=== PATIENT | female | born 1955 | race Caucasian/White ===

== ENCOUNTER 2021-09-19 08:00 | Outpatient (CLI) | payer BC, MEDICARE ==
[2021-09-19 18:19] LABS: BASOPHILS % (AUTO) 0.6 %; EOSINOPHILS # (AUTO) 0.1 10^3/uL (0.0-0.7); EOSINOPHILS % (AUTO) 2.5 %; HCT - HEMATOCRIT 44.8 % (37.0-47.0); HGB - HEMOGLOBIN 15.3 g/dL (12.0-16.0); LYMPHOCYTES # (AUTO) 0.9 10^3/uL (1.5-3.5); LYMPHOCYTES % (AUTO) 16.2 %; MEAN CORPUSCULAR HEMOGLOBIN 31.2 pg (27.0-31.0); MEAN CORPUSCULAR HGB CONC 34.2 g/dL (32.0-36.0); MEAN CORPUSCULAR VOLUME 91.2 fL (81.0-99.0); MEAN PLATELET VOLUME 10.8 fL (7.9-10.8); MONOCYTES # (AUTO) 0.4 10^3/uL (0.0-1.0); MONOCYTES % (AUTO) 6.8 %; NEUTROPHILS # (AUTO) 3.9 10^3/uL (1.5-6.6); NEUTROPHILS % (AUTO) 73.7 %; PLT - PLATELET COUNT 205 10^3/uL (130-450); RED BLOOD COUNT 4.91 10^6/uL (4.20-5.40); RED CELL DISTRIBUTION WIDTH 12.7 % (12.0-15.0); WHITE BLOOD COUNT 5.3 x10^3/uL (4.8-10.8)
[2021-09-19 18:43] LABS: ALBUMIN 4.3 g/dL (3.2-5.5); ALBUMIN/GLOBULIN RATIO 1.4 (1.0-2.2); ALKALINE PHOSPHATASE 51 IU/L (42-121); ALT ALANINE AMINOTRANSFERASE 21 IU/L (10-60); AST ASPARTATE AMINOTRANSFERASE 25 IU/L (10-42); BILIRUBIN,TOTAL 0.9 mg/dL (0.2-1.0); BUN - BLOOD UREA NITROGEN 18 mg/dL (6-20); CALCIUM 9.3 mg/dL (8.5-10.3); CARBON DIOXIDE - CO2 26 mmol/L (21-32); CHLORIDE 99 mmol/L (101-111); CHOL/HDL RATIO 5.5 (<4.4); CHOLESTEROL 251 mg/dL; CREATININE 0.7 mg/dL (0.4-1.0); GFR - MDRD 84 (>89); GLUCOSE 108 mg/dL (70-100); HDL CHOLESTEROL 46 mg/dL; LDL CHOLESTEROL,CALCULATED 181 mg/dL; LDL/HDL RATIO 3.9 (<4.4); POTASSIUM 3.8 mmol/L (3.5-5.0); SODIUM 136 mmol/L (135-145); TOTAL PROTEIN 7.4 g/dL (6.7-8.2); TRIGLYCERIDES 120 mg/dL; VLDL CHOLESTEROL 24 mg/dL
[2021-09-19 20:20] LABS: ESTIMATED AVERAGE GLUCOSE 97 mg/dL (70-100)
== END 2021-09-19 23:59 ==
LOC: LAB.WCP 08:00
PROVIDERS: ATTEND Family Medicine
DX: E88.81 Metabolic syndrome and other insulin resistance (principal); E78.2 Mixed hyperlipidemia; I10 Essential (primary) hypertension
CPT/HCPCS: 36415; 80053; 80061; 83036; 83721; 85025

== ENCOUNTER 2022-10-24 12:46 | Outpatient (CLI) | payer MEDICARE, OTHER ==
--- NOTE | 2022-10-24 18:03 | DEXA Report ---
PROCEDURE: Dexa Spine and/or Hip INDICATIONS: POST MENOPAUSAL TECHNIQUE: Dual energy x-ray absorptiometry (DXA) was performed on a [employer]. Regions measur ed are the AP Spine, femoral neck, and if needed forearm. COMPARISON: None. FINDINGS: Lumbar Spine: Bone Mineral Density 1.516 g/cm/cm,T score 2.8, normal bone density Left Hip: Bone Mineral Density 1.215 g/cm/cm, T score 1.6, normal bone density Left Femoral Neck: Bone Mineral Density 1.188 g/cm/cm,T score 1.1, normal bone density (T score greater or equal to -1.0: NORMAL) (T score from -1.1 to -2.4: OSTEOPENIA) (T score less than or equal to -2.5 to: OSTEOPOROSIS) Impression: Normal bone mineral density. Patients with diagnosis of osteoporosis or osteopenia should have regular bone mineral density assess ment. For those eligible for Medicare, routine testing is allowed once every 2 years. Testing frequ ency can be increased for patients who have rapidly progressing disease or for those who are receivin g medical therapy to restore bone mass. Reviewed by: Oumar Stone MD on 10/24/2022 6:01 PM PST Approved by: Oumar Stone MD on 10/24/2022 6:01 PM PST Station ID: [id number]
== END 2022-10-24 12:47 | disposition home or self-care (01) ==
LOC: DI 12:46
PROVIDERS: ATTEND Physician Assistant
DX: Z78.0 Asymptomatic menopausal state (principal)

== ENCOUNTER 2023-11-24 13:58 | Outpatient (CLI) | payer MEDICARE, OTHER ==
--- NOTE | 2023-11-24 18:06 | XRAY Report ---
PROCEDURE: Ankle 3+V RT INDICATIONS: RT FOOT AND ANKLE JOINT PAIN TECHNIQUE: 3 views of the ankle were acquired. COMPARISON: None. FINDINGS: Bones: No fractures or dislocations. Ankle mortise is normally aligned. Dorsal and plantar calcanea l spurs. Suggestion of pes planus. Soft tissues: Soft tissue swelling of the dorsum of the foot suggested. IMPRESSION: Pes planus and dorsal and plantar calcaneal spurs Soft tissue swelling dorsum of the foot Reviewed by: Daniel Diaz MD on 11/24/2023 6:05 PM PST Approved by: Daniel Diaz MD on 11/24/2023 6:05 PM PST Station ID: [id number]
--- NOTE | 2023-11-24 18:10 | XRAY Report ---
PROCEDURE: Foot 3+V RT (Weight Bearing) INDICATIONS: RT FOOT AND ANKLE JOINT PAIN TECHNIQUE: 3 views of the right foot are provided COMPARISON: None. FINDINGS: Questionable DJD of the distal No acute fracture or subluxation is seen. No significant soft tissue swelling is seen. Soft tissue sw elling noted on the dorsum of the foot. Note is again made of pes planus and dorsal and plantar calca jordan spurs. DJD of the first interphalangeal joint, the first metacarpophalangeal joint. Osteophytes seen adjacen t to the head of the first metatarsal on the oblique view. IMPRESSION: 1. DJD of the first metatarsophalangeal joint, first interphalangeal joint 2. Pes planus, dorsal and plantar calcaneal spurs, soft tissue swelling dorsum of the foot. Reviewed by: Daniel Diaz MD on 11/24/2023 6:09 PM PST Approved by: Daniel Diaz MD on 11/24/2023 6:09 PM PST Station ID: [id number]
== END 2023-11-24 13:59 | disposition home or self-care (01) ==
LOC: DI.N 13:58
PROVIDERS: ATTEND Nurse Practitioner
DX: M19.071 Primary osteoarthritis, right ankle and foot (principal); M21.41 Flat foot [pes planus] (acquired), right foot; M77.31 Calcaneal spur, right foot; R93.6 Abnormal findings on diagnostic imaging of limbs; R93.89 Abnormal findings on diagnostic imaging of other specified body structures